=== PATIENT | male | born 1990 | race Caucasian/White ===

== ENCOUNTER 2020-11-28 23:36 | Emergency (ER) | payer MEDICAID ==
[~2020-11-28] VITALS: Ht 180.3 cm; Wt 87.0 kg
[2020-11-29 01:11] LABS: CLARITY URINE CLEAR (CLEAR); COLOR URINE YELLOW (YELLOW); KETONES URINE TRACE (NEGATIVE); LEUKOCYTE ESTERASE URINE 2+ (NEGATIVE); NITRITE URINE NEGATIVE (NEGATIVE); OCCULT BLOOD URINE NEGATIVE (NEGATIVE); PROTEIN URINE TRACE (NEGATIVE); SPECIFIC GRAVITY URINE 1.028 (1.005-1.030)
[2020-11-29 01:16] LABS: BASOPHILS % 0.8 % (0.0-2.0); EOSINOPHILS % 4.1 % (0.0-5.0); HEMATOCRIT. 46.6 % (42.0-52.0); HEMOGLOBIN. 16.7 g/dL (14.0-18.0); LYMPHOCYTES % 59.2 % (20.0-50.0); MEAN CORPUSCULAR HEMOGLOBIN 31.7 pg (28.0-32.0); MEAN CORPUSCULAR VOLUME 88.7 fL (80.0-94.0); MEAN PLATELET VOLUME 8.2 fl (7.4-10.4); MONOCYTES % 9.7 % (2.0-8.0); NEUTROPHILS % 26.2 % (40.0-76.0); PLATELET 210 x1000/uL (130-400); RED BLOOD CELL COUNT 5.25 mill/uL (4.7-6.1); RED CELL DISTRIBUTION WIDTH 13.2 % (11.6-14.6)
[2020-11-29 01:22] LABS: CHLORIDE 107 mEq/L (98-107)
[2020-11-29] MEDS ORDERED: CLOT15CR27 TP (02:26)
[2020-11-29] MEDS ORDERED: CEPH500T MT (02:26)
[2020-11-29] MEDS ORDERED: CEPHALEXIN 250MG CAPSULE PO ONE (02:30)
[2020-11-29 02:42] VITALS: BP 125/84
== END 2020-11-29 02:45 | disposition home or self-care (01) ==
LOC: ER 23:36
DX: N39.0 Urinary tract infection, site not specified (principal); R42 Dizziness and giddiness
CPT/HCPCS: 36415; 80048; 81003; 85025; 86592; 87491; 87591; 99283